=== PATIENT | female | born 1980 | race Caucasian/White ===

== ENCOUNTER 2016-07-15 17:25 | Emergency (ER) | payer OTHER ==
[~2016-07-15 17:25] MED LIST: ANTI DEPRESSANT MED; BENTYL20 MG PO; CYMBALTA60 MG; FLEXERIL10 MG PO; MAXZIDE-25 MG1 UDTAB; MOTRIN800 MG PO; NAPROSYN500 MG PO; NEXIUM; NORCO 5/325 TAB1 TAB PO; OXYCODONE-APAP; PERCOCET 5/3251 TAB PO; PRILOSEC OTC20 MG; ZANTAC150 MG
[2016-07-15] MEDS ORDERED: WAL ZAN PO (17:52)
[2016-07-15] MEDS ORDERED: AUGMENTIN 875-1 EAC2 PO (17:53)
[2016-07-15 18:18] LABS: BASO % 0.4 % (0-2); EOS % 2.3 % (0-7); EOSINOPHIL ABSOLUTE COUNT 0.2 tho/cmm (0.0-0.7); HCT-HEMATOCRIT 44.8 % (34.0-49.0); HGB-HEMOGLOBIN 15.2 gm/dl (12.0-15.5); IMMATURE GRANULOCYTES ABSOLUTE 0.01 tho/cmm (0-0.03); IMMATURE GRANULOCYTES PERCENT 0.1 % (0-0.3); LYMPH % 26.9 % (20-45); LYMPH ABSOLUTE COUNT 1.9 tho/cmm (0.8-4.5); MCH (MEAN CORPUSCULAR HGB) 30.3 pg (28.0-32.0); MCHC MEAN CORPUSCULAR HGB CONC 33.9 % (32.0-36.0); MCV (MEAN CELL VOLUME) 89.2 fl (82.0-96.0); MEAN PLATELET VOLUME 9.2 cmc (9.4-12.4); MONO % 5.6 % (0-12); MONOCYTE ABSOLUTE COUNT 0.4 tho/cmm (0.0-1.2); NEUTROPHIL ABSOLUTE COUNT 4.5 tho/cmm (1.6-8.0); NEUTROPHIL-AUTOMATED 4.5 tho/cmm (1.6-8.0); NEUTROPHILS % 64.7 % (40-80); PLATELET COUNT 201 tho/cmm (150-450); RED BLOOD COUNT 5.02 mil/cmm (4.00-5.20); RED CELL DISTRIBUTION WIDTH 13.1 % (12.4-16.4)
[2016-07-15 18:30] LABS: ANION GAP 11 mmol/L (0-20); BLOOD UREA NITROGEN 19 mg/dl (6-24); C-REACTIVE PROTEIN 0.9 mg/dl (0-0.9); CALCIUM 8.3 mg/dl (8.5-10.5); CARBON DIOXIDE-VENOUS 25 mmol/L (22-32); CHLORIDE 109 mmol/l (96-110); CREATININE 0.69 mg/dl (0.50-1.10); GLUCOSE 135 mg/dL (70-110); POTASSIUM 3.7 mmol/L (3.7-5.1); SODIUM 141 mmol/L (135-145); eGFR VALUE FOR BLACK >90 mL/Min
[2016-07-15] MEDS ORDERED: VIBRAMYCIN100 M1 PO (19:01)
== END 2016-07-15 19:18 ==
LOC: EDMED 17:25
PROVIDERS: Nurse Practitioner Family
DX: L03.116 Cellulitis of left lower limb (principal); S81.802A Unspecified open wound, left lower leg, initial encounter; J45.909 Unspecified asthma, uncomplicated; F32.9 Major depressive disorder, single episode, unspecified; F17.200 Nicotine dependence, unspecified, uncomplicated; Z88.2 Allergy status to sulfonamides; Z79.899 Other long term (current) drug therapy; X58.XXXA Exposure to other specified factors, initial encounter

== ENCOUNTER 2016-07-16 20:05 | Emergency (ER) | payer OTHER ==
[~2016-07-16 20:05] MED LIST changes: +AUGMENTIN 875-1 EAC2 PO; +VIBRAMYCIN100 M1 PO; +WAL ZAN PO
== END 2016-07-16 21:32 ==
LOC: EDMED 20:05
DX: L03.116 Cellulitis of left lower limb (principal); J45.909 Unspecified asthma, uncomplicated; F17.290 Nicotine dependence, other tobacco product, uncomplicated; Z79.51 Long term (current) use of inhaled steroids

== ENCOUNTER 2016-07-21 04:26 | Inpatient (IN) | payer OTHER ==
[2016-07-21 05:19] LABS: BASO % 0.3 % (0-2); EOS % 5.2 % (0-7); EOSINOPHIL ABSOLUTE COUNT 0.3 tho/cmm (0.0-0.7); HCT-HEMATOCRIT 44.3 % (34.0-49.0); IMMATURE GRANULOCYTES ABSOLUTE 0.01 tho/cmm (0-0.03); IMMATURE GRANULOCYTES PERCENT 0.2 % (0-0.3); LYMPH % 34.6 % (20-45); LYMPH ABSOLUTE COUNT 2.1 tho/cmm (0.8-4.5); MCHC MEAN CORPUSCULAR HGB CONC 33.9 % (32.0-36.0); MCV (MEAN CELL VOLUME) 88.6 fl (82.0-96.0); MEAN PLATELET VOLUME 9.2 cmc (9.4-12.4); MONO % 8.5 % (0-12); MONOCYTE ABSOLUTE COUNT 0.5 tho/cmm (0.0-1.2); NEUTROPHIL ABSOLUTE COUNT 3.1 tho/cmm (1.6-8.0); NEUTROPHIL-AUTOMATED 3.1 tho/cmm (1.6-8.0); NEUTROPHILS % 51.2 % (40-80); PLATELET COUNT 193 tho/cmm (150-450); WHITE BLOOD COUNT 6.1 tho/cmm (4.0-10.0)
[2016-07-21 05:35] LABS: PREGNANCY-SERUM NEGATIVE (NEGATIVE)
[2016-07-21 05:45] LABS: ANION GAP 12 mmol/L (0-20); BLOOD UREA NITROGEN 20 mg/dl (6-24); CARBON DIOXIDE-VENOUS 25 mmol/L (22-32); CHLORIDE 108 mmol/l (96-110); CREATININE 0.75 mg/dl (0.50-1.10); GLUCOSE 103 mg/dL (70-110); SODIUM 141 mmol/L (135-145); eGFR VALUE FOR BLACK >90 mL/Min
[2016-07-21 05:49] LABS: POTASSIUM 3.8 mmol/L (3.7-5.1)
[2016-07-21 05:54] LABS: PROCALCITONIN <0.05 ng/ml (0.05-0.09)
[2016-07-21] MEDS ORDERED: RANITIDINE HCL300 M1 PO (07:07)
[2016-07-21] MEDS ORDERED: ACID CONTROL150 M2 PO (07:17)
[2016-07-24 06:40] LABS: HGB-HEMOGLOBIN 14.8 gm/dl (12.0-15.5); PLATELET COUNT 175 tho/cmm (150-450)
[2016-07-24] MEDS ORDERED: LASIX40 M1 PO (13:37)
[2016-07-24] MEDS ORDERED: CLEOCIN HCL300 M1 PO (13:39)
== END 2016-07-24 15:10 | DRG 603 ==
LOC: EDMED 04:26 → EMR2 05:51 → CAR1 06:59
PROVIDERS: Emergency Medicine; Internal Medicine; ADMIT Hospitalist
PROC: 05HF33Z Insertion of Infusion Device into Left Cephalic Vein, Percutaneous Approach (ICD-10-PCS; principal; 2016-07-21)
DX: L03.116 Cellulitis of left lower limb (principal); Z68.44 Body mass index [BMI] 60.0-69.9, adult; G47.33 Obstructive sleep apnea (adult) (pediatric); E66.01 Morbid (severe) obesity due to excess calories; F41.8 Other specified anxiety disorders; K21.9 Gastro-esophageal reflux disease without esophagitis; Z72.0 Tobacco use; Z71.3 Dietary counseling and surveillance
CPT/HCPCS: C1751; J0696; J1650; J3370; J7050